=== PATIENT | male | born 1950 | race Caucasian/White ===

== ENCOUNTER → 2017-05-21 15:32 | Outpatient (CLI) | payer OTHER, SELFPAY ==
[2017-05-23 20:08] LABS: HCV Quant. RNA PCR HCV Not Detected IU/mL (.)
[2017-05-24 12:01] LABS: AFP, Tumor Marker 6.4 ng/mL (0.0-8.3)
== END ==
PROVIDERS: Family Provider Internal Medicine; PCP Internal Medicine; Visit Provider Internal Medicine Gastroenterology
DX: B18.2 Chronic viral hepatitis C (principal); K74.60 Unspecified cirrhosis of liver
CPT/HCPCS: 36415; 82105; 87522

== ENCOUNTER 2021-06-30 11:25 | Emergency (ER) | payer MEDICARE, SELFPAY ==
[2021-06-30 11:27] VITALS: BP 152/96; PULSE 110; RESP 24; TEMP 37.7; O2SAT 97; BMI 33.7
--- NOTE | 2021-06-30 11:46 | EDS_ITS ---
HPI History of Present Illness Chief Complaint: Fever Informant: patient Narrative Narrative: 70-year-old male states that 4 days ago he began to have diarrhea. He notes an associated fever that is only present when he eats but if he does not eat fever goes away and he does not have diarrhea. States he also developed a slight cough with some phlegm but denies sore throat or rhinorrhea. No vomiting. He denies any bad food exposure. He denies any blood in the stool. No urinary symptoms. PFSH PFSH Medical History no medical history Home Medications Proair Hfa 10/01/16 [History Last Taken Unknown] budesonide-formoterol [Symbicort 160-4.5 Mcg Inhaler] 6 g IH 10/01/16 [History Last Taken Unknown] montelukast 10 mg PO DAILY 10/01/16 [History Last Taken 10/01/16] amlodipine 5 mg PO DAILY 06/30/21 [History Last Taken Unknown] Allergy/AdvReac Type Severity Reaction Status Date / Time No Known Allergies Allergy Verified 10/02/16 09:17 Surgical History no surgical history Social History (Updated 06/30/21 @ 11:[address] Juan Santos, DO) current gender identity: male Smoking Status: Smoker, status unknown ROS ROS ED Constitutional Constitutional ED: Reports fever(s); Denies chills or weight loss Eyes Eyes: Denies change in vision or diplopia ENT ENT ED: Denies ear pain, rhinorrhea or sore throat Cardiovascular Cardiovascular: Denies chest pain, orthopnea, palpitations or racing heartbeat Respiratory/Chest Respiratory/Chest: Denies cough, dyspnea or orthopnea Gastrointestinal Gastrointestinal: Reports diarrhea; Denies abdominal pain, nausea or vomiting Genitourinary Genitourinary ED: Denies dysuria, hematuria or urinary frequency Musculoskeletal Musculoskeletal: Reports myalgias; Denies arthralgias Integumentary Denies abscess or rash Neurologic Neurologic: Denies headache(s) or weakness Psychiatric Psychiatric: Denies anxiety, depression, suicidal ideation or suicidal thoughts Endocrine Endocrinology: Denies polydipsia, polyphagia or polyuria Allergic/Immunologic Allergic/Immunologic ED: Denies mouth swelling, tongue swelling or urticaria EXAM Physical Exam Const Vital Signs: 06/30/21 11:27 06/30/21 11:46 Temperature 99.9 F H Temperature Source Oral Pulse Rate 110 H Respiratory Rate 24 H Respiratory Effort Normal Respiratory Pattern Normal Blood Pressure 152/96 H Blood Pressure Mean 114 Pulse Ox 97 Oxygen Delivery Method Room Air Positive well nourished and well developed General Appearance ED: well developed HEENT Reports normocephalic, head/scalp atraumatic, TM's clear and moist mucous membranes Negative for trauma Tympanic Membrane ED: Yes TM's clear Eyes PERRL and EOMs intact bilaterally Neck no lymphadenopathy, supple and no JVD Resp normal respiratory effort and clear to auscultation bilaterally Cardio regular rate and no murmurs Rate: tachycardic GI normal to inspection, nondistended, normoactive bowel sounds and non-tender Palpation: soft Back/Spine no CVA tenderness and normal ROM Extremity normal to inspection General Extremety ED: Negative for edema General Extremity: Negative for edema Neuro oriented x3 and CN's II-XII intact bilaterally Sensorium / Orientation: alert Motor Exam: strength 5/5 throughout Psych mental status grossly normal Mood & Affect: Negative for depressed or tearful Skin no rashes or lesions noted and no wounds MDM MDM MDM Narrative Medical decision making narrative: IV was established and the patient received a liter of fluids. His COVID test is negative. White count at 10.1 CMP is within normal limits. Patient overall feels better after liter of fluids. I would recommend Imodium Tylenol and Motrin oral hydration to be continued at home return if worsening or concerns Lab Data Attestation: I reviewed the patient's lab results. Labs: Laboratory Results - last 24 hr 06/30/21 06/30/21 12:05 12:05 WBC 10.1 RBC 4.70 Hgb 15.7 Hct 44.2 MCV 94.0 MCH 33.4 H MCHC 35.5 RDW Std Deviation 42.1 RDW Coeff of Contreras 12.0 Plt Count 245 MPV 9.2 Immature Gran % (Auto) 0.300 Neut % (Auto) 67.7 Lymph % (Auto) 17.2 L [place] % (Auto) 13.7 H Eos % (Auto) 0.8 Baso % (Auto) 0.3 Absolute Neuts (auto) 6.8 Absolute Lymphs (auto) 1.73 Nucleated RBC % 0 Sodium 135 L Potassium 4.2 Chloride 102 Carbon Dioxide 24.0 Anion Gap 9 BUN 11 Creatinine 0.93 Estim Creat Clear Calc 71.08 Est GFR (MDRD) Af Amer 104 Est GFR (MDRD) Non-Af 86 BUN/Creatinine Ratio 11.8 Glucose 107 H Calcium 9.1 Total Bilirubin 1.10 H AST 20 ALT 27 Alkaline Phosphatase 89 Total Protein 8.7 H Albumin 3.8 Globulin 4.9 H Albumin/Globulin Ratio 0.8 L Discharge Plan Triage Chief Complaint: Fever ED Provider: Juan Santos Dx/Rx/DC Orders Clinical Impression: Viral diarrhea Instructions: ED Diarrhea, Viral (Adult) Prescriptions: No Action montelukast 10 MG tablet 10 mg PO DAILY RF: 0 budesonide-formoterol [Symbicort] 6 GM Hfa.Aer.Ad 6 g IH RF: 0 Proair Hfa RF: 0 amlodipine 5 mg tablet 5 mg PO DAILY RF: 0 Primary Care Provider: David Mina Referrals: David Mina MD [Primary Care Provider] - Activity Restrictions/Additional Instructions: I would recommend Imodium for the diarrhea and Tylenol and/or Motrin for fever control. Please monitor your oral intake and urinary output. If you are concerned about dehydration please let us know Disposition Disposition: Home, Self Care
[2021-06-30] MEDS: 0.9% Normal Saline 1,000 ML 999 ML IV (12:03)
[2021-06-30 12:11] LABS: Absolute Lymphocyte Count 1.73 X10^3/uL (0.83-4.51); Absolute Neutrophil Count 6.8 X10^3/uL (2.0-7.7); Basophil# 0.03 X10^3/uL; Basophil% 0.3 % (0-1); Eosinophil# 0.08 X10^3/uL; Eosinophils% 0.8 % (0-5); Hematocrit 44.2 % (40-54); Hemoglobin 15.7 g/dL (13.0-16.5); Lymphocyte # 1.73 X10^3/ul (0.83-4.51); Lymphocyte % 17.2 % (19-41); Mean Corp Hgb Conc 35.5 g/dL (32-36); Mean Corpuscular Hgb 33.4 pg (27.0-32.0); Mean Platelet Vol. 9.2 fl (6.2-12.0); Monocyte# 1.38 X10^3/uL; Monocyte% 13.7 % (0-10); NRBC Flagged by Analyzer 0 % (0-5); Neutrophil % 67.7 % (47-70); Platelet Count 245 K/mm3 (150-450); RBC Distribution Width SD 42.1 fl (35.1-43.9); White Blood Count 10.1 K/mm3 (4.4-11.0)
[2021-06-30 12:27] LABS: ALB/GLOB Ratio 0.8 RATIO (0.9-2.4); AST(SGOT) 20 U/L (15-37); Alanine Aminotransfer ALT/SGPT 27 U/L (16-61); Albumin, Serum 3.8 g/dL (3.2-5.0); Alkaline Phosphatase 89 U/L (45-117); Anion Gap 9 (5-15); BUN 11 mg/dL (7-18); BUN/Creat Ratio 11.8 RATIO (10-20); Calcium,Total 9.1 mg/dL (8.5-10.1); Chloride 102 mmol/L (98-107); Creatinine, Serum 0.93 mg/dL (0.70-1.30); EST Glomerular Filtration Rate 86 mL/min (>60); Est Glom Filt Rate - Afr Amer 104 mL/min (>60); Estimated Creatinine Clearance 71.08 ml/min; Globulin 4.9 g/dL (2.2-4.2); Glucose 107 mg/dL (74-106); Potassium 4.2 mmol/L (3.5-5.1); Protein, Total 8.7 g/dL (6.4-8.2); Sodium Level 135 mmol/L (136-145)
== END 2021-06-30 13:44 | disposition home or self-care (01) ==
PROVIDERS: Emergency Provider Emergency Medicine; PCP Internal Medicine; Visit Provider Emergency Medicine
DX: A08.4 Viral intestinal infection, unspecified (principal)
CPT/HCPCS: 80053; 85025; 87811; 96360; 96361; 99283; J7030; A4216

== ENCOUNTER → 2022-05-20 | Outpatient (CLI) | payer MEDICARE, SELFPAY ==
--- NOTE | 2022-05-20 10:55 | ECHOD_ITS ---
Reason For Study: Dyspnea/SOB Procedure This was a 2D Doppler, Color Flow transthoracic echocardiogram. Exam performed in department. Left Ventricle Normal LV size. Moderate concentric left ventricular hypertrophy. Left ventricular systolic function is normal. The estimated ejection fraction is 60 %. Stage 1 diastolic dysfunction. No regional wall motion abnormalities noted. Right Ventricle Normal RV size. Normal systolic function. Atria Normal left atrium. Normal right atrium. Mitral Valve Normal mitral valve. Tricuspid Valve Normal tricuspid valve. Aortic Valve Normal aortic valve. Pulmonic Valve The pulmonic valve is not well visualized. Great Vessels Normal aortic root. The pulmonary artery is normal size. Normal inferior vena cava. Pericardium/Pleural No pericardial effusion. MMode/2D Measurements & Calculations LVIDd: 4.2 cm IVSd: 1.6 cm Ao root diam: 3.4 cm LVIDs: 2.4 cm LVPWd: 1.4 cm RVDd: 2.6 cm FS: 44.3 % LAV(MOD-bp): 24.8 ml LVAd ap4: 20.8 cm2 SV(MOD-sp4): 30.2 ml LAV(MOD-bp) Indexed: 11.9 ml/m2 LVLd ap4: 7.2 cm LAV(MOD-sp2): 26.3 ml EDV(MOD-sp4): 48.0 ml LAV(MOD-sp4): 22.5 ml EDV(sp4-el): 50.8 ml LVAs ap4: 11.2 cm2 LVLs ap4: 5.9 cm ESV(MOD-sp4): 17.8 ml ESV(sp4-el): 17.9 ml EF(MOD-sp4): 62.9 % EF(sp4-el): 64.8 % SV(sp4-el): 32.9 ml LA A4 area: 11.6 cm2 LA dimension(2D): 4.0 cm RA A4 area: 7.8 cm2 Time Measurements MV dec time: 0.30 sec Doppler Measurements & Calculations MV E max lake: 51.8 cm/sec Lat Peak E' [place]: 8.8 cm/sec Med Peak E' [place]: 7.0 cm/sec MV A max lake: 84.1 cm/sec E/E' lat: 5.9 E/E' med: 7.4 MV E/A: 0.62 Ao V2 max: 110.5 cm/sec LV V1 max: 106.6 cm/sec MV dec slope: 174.1 cm/sec2 Ao max P.9 mmHg LV V1 max P.5 mmHg Ao V2 mean: 78.7 cm/sec Ao mean P.8 mmHg Ao V2 VTI: 20.1 cm PA V2 max: 94.5 cm/sec ECHO/Echo Complete Interpretation Summary Normal LV size. Left ventricular systolic function is normal. The estimated ejection fraction is 60 %. Stage 1 diastolic dysfunction. Moderate concentric left ventricular hypertrophy. Ordering Physician: Edilberto Garland Referring Physician: David Mina Performed By: Deb Key, RDCS, RVT
== END | disposition home or self-care (01) ==
LOC: CVS 10:53
PROVIDERS: PCP Internal Medicine; Referring Provider Internal Medicine Critical Care Medicine; Visit Provider Internal Medicine Critical Care Medicine
DX: R06.00 Dyspnea, unspecified (principal)
CPT/HCPCS: 93306

== ENCOUNTER → 2022-07-29 | Outpatient (CLI) | payer MEDICARE, SELFPAY ==
--- NOTE | 2022-07-29 13:07 | CT_ITS ---
STUDY: LOW DOSE CT LUNG CANCER SCREENING REASON FOR EXAM: Male, 71 years old. Patient smoked one half pack per day for 20 years. RADIATION DOSAGE (If Supplied By Facility): CTDIvol = ( 3.18 ) mGy, DLP = ( 116.76 ) mGycm TECHNIQUE: No contrast was administered. Low dose technique was utilized (average mAS-38 and kVp 120). 1.25 mm axial source images with a slice interval of 1.25-mm were reconstructed in lung windows. 2.5 mm axial source images with a slice interval of 2.5-mm were reconstructed in lung windows. 5.0 mm axial source images with a slice interval of 5.0-mm were reconstructed in soft tissue windows. COMPARISON: None. NODULES: No suspicious nodules are seen. Emphysema: Hyperinflation. Emphysematous changes more prominent in the upper lobes. Endobronchial lesion: None Aorta: Mild atherosclerotic plaque formation of the aortic arch. CORONARY ARTERIES: Coronary artery calcification is seen. Heart: Unremarkable. Pulmonary artery: Unremarkable. Mediastinal nodes: Small benign-appearing mediastinal lymph nodes. Other chest and abdominal findings: CT/Low Dose CT Lung Screening IMPRESSION: Lung-RADS category 2 - Continue annual screening with LDCT in 12 months. IMPORTANT NOTES FOR USE: ACR Lung-RADS Version 1.1 Assessment Categories Release Date: 2018 Category: Coded 0-4 bases on nodule(s) with highest degree of suspicion. Negative screen is defined as categories 1 and 2; a positive screen is defined as categories 3 and 4. Category 3 and 4A nodules that are unchanged on interval CT should be coded as category 2, and individuals returned to screening in 12 months. Category 4X: Category 3 or 4 nodules with additional imaging findings that increase the suspicion of lung cancer, such as spiculation, GGN that doubles in size in 1 year, enlarged lymph notes, etc. Category Modifiers: S (significant finding unrelated to lung cancer) Electronically Signed: Jona Bernabe MD at 15:32 EDT ,
== END | disposition home or self-care (01) ==
LOC: CT 13:03
PROVIDERS: PCP Internal Medicine; Referring Provider Internal Medicine Critical Care Medicine; Visit Provider Internal Medicine Critical Care Medicine
DX: Z12.2 Encounter for screening for malignant neoplasm of respiratory organs (principal); J44.9 Chronic obstructive pulmonary disease, unspecified; F17.210 Nicotine dependence, cigarettes, uncomplicated
CPT/HCPCS: 71271

== ENCOUNTER → 2022-08-15 | Outpatient (CLI) | payer MEDICARE, SELFPAY ==
--- NOTE | 2022-08-16 10:28 | PFT ---
INTRODUCTION: The patient is a 71-year-old male that presents for pulmonary function studies secondary to a diagnosis of COPD. Respiratory therapy reported good patient effort. Bronchodilators were used during testing. INTERPRETATION: Forced expiration spirometry demonstrates the presence of a mild large airways obstructive ventilatory defect. There was a significant response to aerosolized bronchodilators. Spirograms are of good quality but do not plateau indicating slow emptying of the lungs. Body plethysmography was performed and revealed lung volumes to be within normal limits. Diffusing capacity by single breath CO is also within normal limits. IMPRESSION: Partially reversible mild large airways obstructive ventilatory defect with preserved lung volumes and diffusing capacity.
== END | disposition home or self-care (01) ==
LOC: PSN 10:48
PROVIDERS: PCP Internal Medicine; Referring Provider Internal Medicine Critical Care Medicine; Visit Provider Internal Medicine Critical Care Medicine
DX: J44.9 Chronic obstructive pulmonary disease, unspecified (principal)
CPT/HCPCS: 94060; 94726; 94729

== ENCOUNTER → 2022-08-19 | Outpatient (CLI) | payer MEDICARE, SELFPAY ==
[2022-08-19 13:33] VITALS: PULSE 100; PULSE 107; PULSE 108; PULSE 109; PULSE 111; O2SAT 94; O2SAT 96; O2SAT 97
--- NOTE | 2022-08-20 16:19 | PFT ---
6-minute walk test Indication: COPD Referring physician: Dr. Edilberto Garland Conditions: Room air The patient completed the test and walked for 6 minutes. Baseline SPO2 was 96%. Minimum ambulatory SPO2 was 94% at 1 minute. Minimum heart rate was 100 at baseline and postexercise. Maximum heart rate was 109 bpm at 4 minutes exercise. Posttest SPO2 was 97% and heart rate was 100 bpm. The Charity dyspnea scale (0-10) was 0% preexercise and 1 at maximum exercise. The Charity exertion scale (range 6-12) was 6 at preexercise and 11 at maximum exercise. The patient took no rest and reported no symptoms during the test. He walked 20 laps, for a total of 1082 feet.
== END | disposition home or self-care (01) ==
LOC: PSN 12:33
PROVIDERS: PCP Internal Medicine; Referring Provider Internal Medicine Critical Care Medicine; Visit Provider Internal Medicine Critical Care Medicine
DX: J44.9 Chronic obstructive pulmonary disease, unspecified (principal)
CPT/HCPCS: 94618

== ENCOUNTER → 2023-01-28 | Outpatient (CLI) | payer MEDICARE, SELFPAY ==
[2023-01-28 10:06] LABS: Hematocrit 43.9 % (40-54); Hemoglobin 15.3 g/dL (13.0-16.5); Mean Corp Hgb Conc 34.9 g/dL (32-36); Mean Corpuscular Hgb 33.4 pg (27.0-32.0); Mean Corpuscular Volume 95.9 fL (80-94); Mean Platelet Vol. 9.1 fl (6.2-12.0); Platelet Count 256 K/mm3 (150-450); RBC Distribution Width CV 12.8 % (11.6-14.6); RBC Distribution Width SD 45.5 fl (35.1-43.9); Red Blood Count 4.58 M/mm3 (4.6-6.2)
[2023-01-28 10:44] LABS: ALB/GLOB Ratio 0.9 RATIO (0.9-2.4); AST(SGOT) 24 U/L (15-37); Alanine Aminotransfer ALT/SGPT 35 U/L (16-61); Albumin, Serum 3.6 g/dL (3.2-5.0); Alkaline Phosphatase 69 U/L (45-117); Anion Gap 7 (5-15); BUN 11 mg/dL (7-18); BUN/Creat Ratio 12.5 RATIO (10-20); Calcium,Total 8.6 mg/dL (8.5-10.1); Chloride 99 mmol/L (98-107); Cholesterol 170 mg/dL (200); Creatinine, Serum 0.88 mg/dL (0.70-1.30); EST Glomerular Filtration Rate 91 mL/min (>60); Est Glom Filt Rate - Afr Amer 110 mL/min (>60); Glucose 104 mg/dL (74-106); High Density Lipoprotein 67 mg/dL; PSA,Total- Diagnostic 0.29 ng/mL (0.0-4.0); Potassium 3.6 mmol/L (3.5-5.1); Protein, Total 7.6 g/dL (6.4-8.2); Sodium Level 134 mmol/L (136-145); Triglycerides 81 mg/dL; Very Low Density Lipoprotein 16 mg/dL (5-40)
== END | disposition home or self-care (01) ==
LOC: MFPLAB 09:17
PROVIDERS: PCP Internal Medicine; Visit Provider Family Medicine
DX: I10 Essential (primary) hypertension (principal); J44.9 Chronic obstructive pulmonary disease, unspecified; N40.0 Benign prostatic hyperplasia without lower urinary tract symptoms
CPT/HCPCS: 36415; 80053; 80061; 84153; 85027

== ENCOUNTER → 2023-07-31 | Outpatient (CLI) | payer MEDICARE, SELFPAY ==
--- NOTE | 2023-07-31 14:02 | CT_ITS ---
STUDY: LOW DOSE CT LUNG CANCER SCREENING REASON FOR EXAM: Male, 72 years old. Smoker, quit 2017. Patient smoked 1 pack per day for 20 years. RADIATION DOSAGE (If Supplied By Facility): CTDIvol = ( 4.02 ) mGy, DLP = ( 139.94 ) mGycm TECHNIQUE: No contrast was administered. Low dose technique was utilized (average mAS-38 and kVp 120). 1.25 mm axial source images with a slice interval of 1.25-mm were reconstructed in lung windows. 2.5 mm axial source images with a slice interval of 2.5-mm were reconstructed in lung windows. 5.0 mm axial source images with a slice interval of 5.0-mm were reconstructed in soft tissue windows. COMPARISON: Comparison is made with prior examination dated July 29, 2022. NODULES: No pulmonary nodule is seen. Emphysema: Emphysematous changes. Centrilobular changes seen in the upper lobes. Endobronchial lesion: None Aorta: Atherosclerotic calcification of the aortic arch. CORONARY ARTERIES: Coronary artery calcification is seen. Heart: Unremarkable Pulmonary artery: Unremarkable Mediastinal nodes: Small mediastinal lymph nodes. Other chest and abdominal findings: CT/Low Dose CT Lung Screening IMPRESSION: Lung-RADS category 2 - Continue annual screening with LDCT in 12 months. IMPORTANT NOTES FOR USE: ACR Lung-RADS Version 1.1 Assessment Categories Release Date: 2018 Category: Coded 0-4 bases on nodule(s) with highest degree of suspicion. Negative screen is defined as categories 1 and 2; a positive screen is defined as categories 3 and 4. Category 3 and 4A nodules that are unchanged on interval CT should be coded as category 2, and individuals returned to screening in 12 months. Category 4X: Category 3 or 4 nodules with additional imaging findings that increase the suspicion of lung cancer, such as spiculation, GGN that doubles in size in 1 year, enlarged lymph notes, etc. Category Modifiers: S (significant finding unrelated to lung cancer) Electronically Signed: Jona Bernabe MD at 14:41 EDT ,
== END | disposition home or self-care (01) ==
PROVIDERS: PCP Family Medicine; Referring Provider Nurse Practitioner Acute Care; Visit Provider Nurse Practitioner Acute Care
DX: Z12.2 Encounter for screening for malignant neoplasm of respiratory organs (principal); Z87.891 Personal history of nicotine dependence
CPT/HCPCS: 71271

== ENCOUNTER → 2023-09-29 | Outpatient (CLI) | payer MEDICARE, SELFPAY ==
--- NOTE | 2023-09-29 15:11 | RAD_ITS ---
STUDY: X-RAY - LEFT KNEE REASON FOR EXAM: Male, 72 years old. pain TECHNIQUE: 4 view(s) of the knee. COMPARISON: None. FINDINGS: Normal visualized distal femur. Normal visualized proximal tibia and fibula. Normal proximal tibiofibular articulation. There is mild degenerative arthrosis of the medial femorotibial compartment. There is mild degenerative arthrosis of the lateral femorotibial compartment. There is mild degenerative arthrosis of the patellofemoral articulation. The soft tissue structures are unremarkable. RAD/Knee 4 or More Views IMPRESSION: Degenerative arthrosis. Electronically Signed: Dawson Corona MD at 18:32 EDT ,
== END | disposition home or self-care (01) ==
PROVIDERS: PCP Family Medicine; Referring Provider Nurse Practitioner Family; Visit Provider Nurse Practitioner Family
DX: M25.562 Pain in left knee (principal)
CPT/HCPCS: 73564

== ENCOUNTER 2024-01-06 14:00 | Outpatient (RCR) | payer MEDICARE, SELFPAY | END 2024-01-06 19:00 | disposition home or self-care (01) | LOC: PT 14:00 | PROVIDERS: PCP Family Medicine; Referring Provider Family Medicine; Visit Provider Family Medicine | DX: M17.10 Unilateral primary osteoarthritis, unspecified knee (principal) | CPT/HCPCS: 97110; 97162; 97530 ==

== ENCOUNTER → 2024-02-22 | Outpatient (CLI) | payer MEDICARE, SELFPAY ==
--- NOTE | 2024-02-22 12:20 | MRI_ITS ---
STUDY: MRI LEFT KNEE REASON FOR EXAM: Male, 73 years old. Pain. TECHNIQUE: Standardized fat and water weighted pulse sequences were obtained in all 3 orthogonal planes. COMPARISON: Left knee radiographs dated 09/29/2023. FINDINGS: Normal medial meniscus. Normal hyaline cartilage of the medial femorotibial compartment. Normal medial femoral condyle and tibial plateau. Normal medial collateral ligamentous complex (MCL). Normal distal semimembranosus, gracilis and semitendinosus tendons. Normal lateral meniscus. Normal hyaline cartilage of the lateral femorotibial compartment. Normal lateral femoral condyle and tibial plateau. Normal proximal tibiofibular articulation. Normal lateral collateral (fibular) ligament. Normal popliteus tendon. Normal biceps femoris tendon. Normal anterior cruciate ligament (ACL). Normal posterior cruciate ligament (PCL). There is moderate grade chondromalacia along the lateral patellar facet (axial T2 series 2 image 8). There is slight lateral patellar subluxation. Normal medial and lateral patellar retinaculum. Normal quadriceps tendon. Normal patellar tendon. Normal Hoffa''s fat pad. There is a very tiny joint effusion. There is no popliteal cyst. The soft tissues are unremarkable. The otherwise visualized osseous structures are unremarkable. MRI/Lower Ext Joint Only (Routine) IMPRESSION: Moderate grade chondromalacia patellae, with slight lateral patellar subluxation. Very tiny joint effusion. No discrete meniscal tear or acute ligamentous injury. Electronically Signed: Pedro Pablo Earl MD at 15:44 EST ,
== END | disposition home or self-care (01) ==
PROVIDERS: PCP Family Medicine; Referring Provider Family Medicine; Visit Provider Family Medicine
DX: M25.562 Pain in left knee (principal)
CPT/HCPCS: 73721

== ENCOUNTER → 2024-07-15 | Outpatient (CLI) | payer MEDICARE, SELFPAY ==
[2024-07-15 12:19] LABS: Hematocrit 40.6 % (40-54); Hemoglobin 14.7 g/dL (13.0-16.5); Mean Corp Hgb Conc 36.2 g/dL (32-36); Mean Corpuscular Hgb 33.4 pg (27.0-32.0); Mean Corpuscular Volume 92.3 fL (80-94); Mean Platelet Vol. 9.2 fl (6.2-12.0); Platelet Count 219 K/mm3 (150-450); RBC Distribution Width CV 12.5 % (11.6-14.6); RBC Distribution Width SD 42.5 fl (35.1-43.9); White Blood Count 6.6 K/mm3 (4.4-11.0)
[2024-07-15 13:31] LABS: ALB/GLOB Ratio 1.5 RATIO (0.9-2.4); AST(SGOT) 31 U/L (<=37); Alanine Aminotransfer ALT/SGPT 33 U/L (<=46); Albumin, Serum 4.3 g/dL (3.4-4.8); Alkaline Phosphatase 68 U/L (40-129); Anion Gap 11 (5-15); BUN 18 mg/dL (4-19); BUN/Creat Ratio 23.1 RATIO (10-20); Calcium,Total 8.9 mg/dL (7.6-11.0); Carbon Dioxide 26.6 mmol/L (21.0-32.0); Chloride 94 mmol/L (98-108); Cholesterol 136 mg/dL (<=200); Creatinine, Serum 0.79 mg/dL (0.70-1.20); EST Glomerular Filtration Rate 95 (>60); Globulin 2.9 g/dL (2.2-4.2); Glucose 105 mg/dL (70-99); High Density Lipoprotein 60 mg/dL; Low Density Lipoprotein Calc. 64 mg/dL; PSA,Total - Annual Screen 0.33 ng/mL (0.02-4.00); Potassium 3.4 mmol/L (3.3-5.1); Protein, Total 7.3 g/dL (5.9-8.4); Sodium Level 132 mmol/L (133-145); Triglycerides 63 mg/dL; Very Low Density Lipoprotein 13 mg/dL (5-40); cholesterol:hdl ratio screen 2.28
[2024-07-15 16:09] LABS: Microalbumin,Random Urine < 12.0 mg/L (NO RANGE EST.)
== END | disposition home or self-care (01) ==
LOC: MFPLAB 10:24
PROVIDERS: PCP Family Medicine; Referring Provider Family Medicine; Visit Provider Family Medicine
DX: Z00.00 Encounter for general adult medical examination without abnormal findings (principal); J44.9 Chronic obstructive pulmonary disease, unspecified; Z12.5 Encounter for screening for malignant neoplasm of prostate; E78.5 Hyperlipidemia, unspecified
CPT/HCPCS: 36415; 80053; 80061; 82043; 84153; 85027; G0103

== ENCOUNTER → 2024-08-02 | Outpatient (CLI) | payer MEDICARE, SELFPAY ==
--- NOTE | 2024-08-02 08:22 | CT_ITS ---
PROCEDURE: LOW DOSE CT LUNG SCREENING 08/02/2024 REASON FOR EXAM: SMOKER TECHNIQUE: Low Dose CT Lung screening without contrast. Coronal and Sagittal reconstruction series were provided. One or more dose reduction techniques were used (e.g., Automated exposure control, adjustment of the mA and/or kV according to patient size, use of iterative reconstruction technique). REFERENCE LINK: [employer] Lung-RADS RADIATION DOSE SUMMARY: CTDlvol: 4.02 mGy DLP: 149.99 mGycm COMPARISON: Comparison is made with prior study dated July 31, 2023. FINDINGS: PULMONARY NODULES: (Only nodules >3mm are reported) Nodules described below are on series 1 unless otherwise specified. Pulmonary Nodules: No suspicious pulmonary nodule seen. Hardware:None Lymph Nodes:Small benign-appearing mediastinal lymph nodes. These are stable. Heart and Vasculature:The heart is not enlarged. Coronary Artery Calcifications: Present Lungs and Airways: Mild emphysematous changes are present. Hyperinflation. Stable examination. Pleura:Unremarkable Upper Abdomen:Unremarkable Bones:Degenerative changes of the thoracic spine. CT/Low Dose CT Lung Screening IMPRESSION: Stable examination. Coronary artery calcification (CAC) is is present Lung-RADS Category: 2 BENIGN (BASED ON IMAGING FEATURES OR INDOLENT BEHAVIOR). RECOMMEND 12-MONTH SCREENING LDCT. Other Significant Findings: None. Reading Location: [place] [id number]
== END | disposition home or self-care (01) ==
LOC: CT 08:21
PROVIDERS: PCP Family Medicine; Referring Provider Nurse Practitioner Acute Care; Visit Provider Nurse Practitioner Acute Care
DX: F17.210 Nicotine dependence, cigarettes, uncomplicated (principal)
CPT/HCPCS: 71271

== ENCOUNTER 2024-10-12 05:57 | Day surgery (SDC) | payer MEDICARE, SELFPAY ==
--- NOTE | 2024-10-01 19:31 | PAT.ANE_ITS ---
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
--- NOTE | 2024-10-01 19:31 | PAT.ANESEVAL ---
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 When Was Last Pacemaker Check QUESTION #4 FULL TEXT: You/Your Family Experience fever (hyperthermia) with Anesthesia Last Oral Intake Last Oral intake: Last Oral Intake NPO since Meds taken in AM with sips of water? Meds patient instructed to take am of surgery PONV PONV - stone mason: PONV - stone mason Female No 10/01/24 14:07 HX of Motion Sickness No 10/01/24 14:07 HX of N/V After Surgery No 10/01/24 14:07 Non-Smoker Yes 10/01/24 14:07 Duration of Surgery greater No 10/01/24 14:07 than 60 minutes Number of Risk Factors 1 10/01/24 14:07 PONV Score Low Risk 10/01/24 14:07 Height & Weight Height & Weight: Anesthesia: Height & Weight Height 5 ft 7 in 09/08/24 07:54 Respiratory Assessment Respiratory Assessment - stone mason: Respiratory Tract Infection Hx - stone mason Hx Respiratory Tract Infection No 10/01/24 14:07 STOP Sleep Apnea STOP Sleep Apnea - stone mason: STOP Sleep Apnea - stone mason Hx Hypertension Yes 10/01/24 14:07 Hx Sleep Apnea No 10/01/24 14:07 CPAP BIPAP Do you snore loudly (louder No 10/01/24 14:07 than talking or can be heard Do you often feel tired/ No 10/01/24 14:07 fatigued/ sleepy during daytime? Has anyone observed you stop No 10/01/24 14:07 breathing during sleep? STOP Results Negative 10/01/24 14:07 QUESTION #5 FULL TEXT : Do you snore loudly (louder than talking or can be heard through closed doors)? 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 Specify any problems Hx of Preganancy in last 3 N/A 10/01/24 14:07 Months Nurse Filling Out Transfusion KALLIE 10/01/24 14:07 & Questions: Date: 10/01/24 10/01/24 14:07 Time: 14:09 10/01/24 14:07 Patient unable to answer at this time (ie. 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 Thrombocytopenia History of chicken pox 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 Chronic hepatitis C without hepatic coma Carpal tunnel syndrome, bilateral Asthma with chronic obstructive pulmonary disease (COPD) Asbestos exposure Allergy to environmental factors Abnormal liver function tests Home Medications ?Medication ?Instructions ?Recorded ?Last Taken ?Type losartan 50 mg tablet 50 mg PO BID 05/14/22 Unknown History tadalafil 20 mg tablet 20 mg PO DAILY PRN sexual activity 05/14/22 Unknown History chlorthalidone 25 mg tablet 25 mg PO DAILY 03/14/23 Unknown History Disability Placard #1 ea 05/06/24 Unknown Rx aspirin 81 mg tablet 81 mg PO QDAY 09/08/24 Unknown History meloxicam 15 mg tablet 15 mg PO QDAY 09/08/24 Unknown History rosuvastatin 20 mg tablet 20 mg PO QHS 09/08/24 Unknown History tamsulosin 0.4 mg capsule 0.4 mg PO QHS 09/08/24 Unknown History albuterol sulfate 90 mcg/actuation 2 inh inhalation Q6H #8.5 grams 09/20/24 Unknown Rx aerosol inhaler budesonide-formoterol HFA 160 2 puff inhalation BID #3 ea 09/20/24 Unknown Rx mcg-4.5 mcg/actuation aerosol inhaler (Symbicort) montelukast 10 mg tablet 10 mg PO DAILY #90 tabs 09/20/24 Unknown Rx Allergy/AdvReac Type Severity Reaction Status Date / Time No Known Allergies Allergy Verified 10/01/24 13:57 Family History Father , age 66 CAD (coronary artery disease) Hypertension Obesity CVA (cerebral vascular accident) Surgical History (Updated 10/01/24 @ 14:06 by Nan Vivas) History of hernia surgery Social History number of children: 1 Smoking Status: Former smoker quit date: 01/15/18 pack-years: 40 Audit: Pertinent Findings Pertinent Findings EKG Perinent findings: October 16, 2023. Sinus rhythm. Normal EKG. Stress test pertinent findings: November 03, 2023. Negative for inducible ischemia. Normal ejection fraction. Echo (EF%) pertinent findings: May 20, 2022. EF is 60%. No aortic stenosis noted. Consult pertinent findings: November 27, 2023. 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 1. Hypertension?controlled. 2. Aortic atherosclerosis-recent ultrasound of the aorta was normal. 3. Coronary artery calcification-most recent stress test showed no ischemia and a normal ejection fraction. Patient is started on a statin and baby aspirin. Recommendation Anesthesia Recommendation Anesthesia recommendation: OPTIMIZED for anesthesia
[2024-10-12] VITALS (9 sets, daily range): BP systolic 128–151; BP diastolic 58–95; PULSE 69–79; RESP 14–20; TEMP 36.6–36.9; O2SAT 10–100; BMI 32.8
[2024-10-12] MEDS: Lactated Ringers 1,000 ML 15 ML IV (06:38)
--- NOTE | 2024-10-12 07:20 | PCM.PRE.AN2 ---
ASA Classification* ASA Classification ASA Classification: 3 Assessment & Plan Anesthesia* Anesthesia Assessment Anesthesia Assessment: Discussed sedation and/or anesthesia options, risks, benefits, and alternatives with patient/parents/legal guardian/POA. Questions invited. The patient/parents/legal guardian/POA seems to understand and agrees to proceed with anesthesia plan. Reviewed the physical assessment, medical history, allergy history and patient home medications list prior to surgery/procedure/anesthetic and documented any changes. Performed airway and anesthesia risk assessments. Anesthesia Type Anesthesia Type: MAC History Source History Obtained from:: Patient and Chart Anesthesia Focused Assessment* Temperature: 98.3 F Pulse Rate: 79 Blood Pressure: 132/85 Respiratory Rate: 18 Pulse Ox: 97 Oxygen Delivery Method: Room Air Airway Assessment Mouth opens: >3 cm Mallampati Score: III Teeth Condition: Intact and Partial (partial on bottom; out) Labs Anesthesia Preop lab: CBC WBC 6.6 K/mm3 (4.4-11.0) 07/15/24 10:07/15/24 RBC 4.40 M/mm3 (4.6-6.2) L 07/15/24 10:07/15/24 Hgb 14.7 g/dL (13.0-16.5) 07/15/24 10:07/15/24 Hct 40.6 % (40-54) 07/15/24 10:25 07/15/24 Plt Count 219 K/mm3 (150-450) 07/15/24 10:25 07/15/24 CHEMISTRY Potassium 3.4 mmol/L (3.3-5.1) 07/15/24 10:25 07/15/24 Sodium 132 mmol/L (133-145) L 07/15/24 10:25 07/15/24 BUN 18 mg/dL (4-19) 07/15/24 10:07/15/24 Creatinine 0.79 mg/dL (0.70-1.20) 07/15/24 10:07/15/24 Glucose 105 mg/dL (70-99) H 07/15/24 10:25 07/15/24 COAG PT 13.7 SECONDS (11.7-14.9) 09/18/16 14:17 07/05/17 Pre-Assessment Diagnosis/Proposed Procedure Planned Operative Procedure(s): (L) Left thumb Trigger Finger A1 mk release Anesthesia History 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 When Was Last Pacemaker Check QUESTION #4 FULL TEXT: You/Your Family Experience fever (hyperthermia) with Anesthesia Last Oral Intake Last Oral intake: Last Oral Intake NPO since 00:00 10/12/24 06:25 Meds taken in AM with sips of No 10/12/24 06:25 water? Meds patient instructed to take am of surgery PONV PONV - covering machine operator: PONV - covering machine operator Female No 10/01/24 14:07 HX of Motion Sickness No 10/01/24 14:07 HX of N/V After Surgery No 10/01/24 14:07 Non-Smoker Yes 10/01/24 14:07 Duration of Surgery greater No 10/01/24 14:07 than 60 minutes Number of Risk Factors 1 10/01/24 14:07 PONV Score Low Risk 10/01/24 14:07 Height & Weight Height & Weight: Anesthesia: Height & Weight Height 5 ft 8 in 10/12/24 06:25 Weight: 98 kg 10/12/24 06:25 Body Mass Index (BMI) 32.8 10/12/24 06:25 Respiratory Assessment Respiratory Assessment - covering machine operator: Respiratory Tract Infection Hx - covering machine operator Hx Respiratory Tract Infection No 10/01/24 14:07 STOP Sleep Apnea STOP Sleep Apnea - covering machine operator: STOP Sleep Apnea - covering machine operator Hx Hypertension Yes 10/01/24 14:07 Hx Sleep Apnea No 10/01/24 14:07 CPAP BIPAP Do you snore loudly (louder No 10/01/24 14:07 than talking or can be heard Do you often feel tired/ No 10/01/24 14:07 fatigued/ sleepy during daytime? Has anyone observed you stop No 10/01/24 14:07 breathing during sleep? STOP Results Negative 10/01/24 14:07 QUESTION #5 FULL TEXT : Do you snore loudly (louder than talking or can be heard through closed doors)? 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 Specify any problems Hx of Preganancy in last 3 N/A 10/01/24 14:07 Months Nurse Filling Out Transfusion MGRIFFITH 10/01/24 14:07 & Questions: Date: 10/01/24 10/01/24 14:07 Time: 14:09 10/01/24 14:07 Patient unable to answer at this time (ie. confused, unrespo /Reproduction History /Reproductive History - covering machine operator: /Reproductive Hx- covering machine operator Hx Now Gestational Age (in weeks): EDC: Hx Hx Para Hx Section SAB Active Medications Active Medications: Current Medications Generic Name Dose Route Start Last Admin Trade Name Freq PRN Reason Stop Dose Admin Cefazolin Sodium 2 gm/ Sodium 110 mls @ 200 mls/hr 10/12/24 07:30 Chloride IV 10/12/24 08:02 INTRAOP ONE Lactated Ringer's 1,000 mls @ 15 mls/hr 10/12/24 06:15 10/12/24 06:38 IV 15 mls/hr .Q48H DELISA Administration PFSH Medical History Wears glasses Alcohol use Arthritis High cholesterol History of hepatitis C Injury of head and neck Asthma COPD (chronic obstructive pulmonary disease) Former smoker Hypertension History of echocardiogram Cardiology follow-up encounter History of CHF (congestive heart failure) 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 Thrombocytopenia History of chicken pox 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 Chronic hepatitis C without hepatic coma Carpal tunnel syndrome, bilateral Asthma with chronic obstructive pulmonary disease (COPD) Asbestos exposure Allergy to environmental factors Abnormal liver function tests Home Medications ?Medication ?Instructions ?Recorded ?Last Taken ?Type losartan 50 mg tablet 50 mg PO BID 05/14/22 10/11/24 History tadalafil 20 mg tablet 20 mg PO DAILY PRN sexual activity 05/14/22 Unknown History chlorthalidone 25 mg tablet 25 mg PO DAILY 03/14/23 10/11/24 History Disability Placard #1 ea 05/06/24 Unknown Rx aspirin 81 mg tablet 81 mg PO QDAY 09/08/24 10/10/24 History meloxicam 15 mg tablet 15 mg PO QDAY 09/08/24 10/04/24 History rosuvastatin 20 mg tablet 20 mg PO QHS 09/08/24 10/11/24 History tamsulosin 0.4 mg capsule 0.4 mg PO QHS 09/08/24 10/11/24 History albuterol sulfate 90 mcg/actuation 2 inh inhalation Q6H #8.5 grams 09/20/24 10/11/24 Rx aerosol inhaler budesonide-formoterol HFA 160 2 puff inhalation BID #3 ea 09/20/24 10/11/24 Rx mcg-4.5 mcg/actuation aerosol inhaler (Symbicort) montelukast 10 mg tablet 10 mg PO DAILY #90 tabs 09/20/24 10/11/24 Rx Allergy/AdvReac Type Severity Reaction Status Date / Time Environmental Allergies: Allergy Severe Stuffy nose Verified 10/12/24 06:21 Uncoded (seasonal) Family History Father , age 66 CAD (coronary artery disease) Hypertension Obesity CVA (cerebral vascular accident) Surgical History History of hernia surgery Social History number of children: 1 Smoking Status: Former smoker quit date: 01/15/18 pack-years: 40 Review of Systems (Anesthesia) ROS Narrative System reviewed and no additional complaints, except as documented.
--- NOTE | 2024-10-12 07:30 | HP.PCM_ITS ---
History and Physical Date of Admission: 10/12/24 [facility] [address] [place] [address] OFFICE VISIT Date of Service: 10/04/24 MR#: [id number] Acct: [id number] Name: CHRISTINE CUEVAS Rep #: [id number] : 1950 Provider: Dr. Eleazar Mayo DO Age/Sex: 73/M Location: [facility] [place] Status: Signed Intake Vital Signs 09/08/2506:54 10/05/2507:14 Height 5 ft 7 in 5 ft 7 in Weight: 219 lb 212 lb BMI 34.2 33.2 BP 133/87 H Blood Pressure Location Lt brachial Position Sitting Respiration 20 H Pulse 89 Pulse Source Monitor Temp 97.4 F L Pulse Oximetry (%) 96 Oxygen Delivery Method room air Intake Visit Reasons: LEFT KNEE Chief Complaint: 3rd Euflexxa left knee injection Accompanied by: Self Is patient in pain?: Yes Pain scale (1-10): 1 Allergies Environmental Allergies: Uncoded (seasonal) Allergy (Severe, Verified 10/04/24 08:22) Stuffy nose Medications ?Medication ?Instructions ?Recorded ?Confirmed ?Type losartan 50 mg tablet 50 mg PO BID 05/14/22 10/04/24 History tadalafil 20 mg tablet 20 mg PO DAILY PRN sexual activity 05/1410/04/24 History chlorthalidone 25 mg tablet 25 mg PO DAILY 03/14/23 10/04/24 History Disability Placard #1 ea 05/06/24 10/04/24 Rx aspirin 81 mg tablet 81 mg PO QDAY 09/08/24 10/04/24 History meloxicam 15 mg tablet 15 mg PO QDAY 09/08/24 10/04/24 History rosuvastatin 20 mg tablet 20 mg PO QHS 09/08/24 10/04/24 History tamsulosin 0.4 mg capsule 0.4 mg PO QHS 09/08/24 10/04/24 History albuterol sulfate 90 mcg/actuation 2 inh inhalation Q6H #8.5 grams 09/20/24 10/04/24 Rx aerosol inhaler budesonide-formoterol HFA 160 2 puff inhalation BID #3 ea 09/20/24 Rx mcg-4.5 mcg/actuation aerosol inhaler (Symbicort) montelukast 10 mg tablet 10 mg PO DAILY #90 tabs 09/20/24 5 Rx Have you fallen in the past year?: Yes PFSH Medical History Wears glasses Alcohol use Arthritis High cholesterol History of hepatitis C Injury of head and neck Asthma COPD (chronic obstructive pulmonary disease) Former smoker Hypertension History of echocardiogram Cardiology follow-up encounter History of CHF (congestive heart failure) 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 Thrombocytopenia History of chicken pox 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 Eleazar Mayo, DO 10/04/24 0744. Part of today?s visit was documented by Verónica Sanchez MA, acting as scribe. CHRISTINE CUEVAS is a 73 year old M here today for 3rd Euflexxa left knee injection. 09/27/2024 visit:here today for 2nd left knee Euflexxa injection. He does note that he has been having triggering of his left thumb for a week or two. Previously he saw Dr. Junior about 7 months ago and he did give him an injection which gave him relief for about 7-8 months. He denies and hx of trauma to the thumb. Patient is RHD. He does admit to some pain over the CMC joint which is mild in MP joint. Plan:Patient is here today for his 2nd left knee Euflexxa injection. Injection was given and patient tolerated well. In addition he does have a trigger thumb of the left that he has been having for about 2 weeks now but previously had an injection [address] Junior that gave him relief for 7-8 months. I talk with patient about doing a repeat injection but patient would like to proceed with surgery. I advised patient that he should stop taking the Meloxicam and aspirin 7 days prior to surgery. Tentative surgery date 10/12/2024 09/20/2024 visit: 1st left knee Euflexxa injection. 08/30/2024 visit:73 year old M new patient with medical history significant for but not limited to chronic diastolic congestive heart failure, smoking greater than 40 pack years, COPD, chronic bronchitis, atherosclerosis of aortic arch, here today for left knee pain. Patient is having left anterior knee pain. The pain in the left knee is a mild pain at this time, it began as very severe. The pain is mainly in the knee cap. does not have any radiation, numbness, or tingling. This has been going on for over a year. Patient states he fell 5 different times. The first fall was at [employer], he missed his step. The other times he fell was he tripped over his rug at home. Patient denies any knee surgeries of the left knee. Walking up hill a little bit makes the pain worse. Patient states that he got a knee injection 7 months ago from [place] sports doctor he points to the medial femoral condyle as to where it was injected. He states that it helped a little bit for about week. Patient stated that he completed physical therapy at [facility] and it did help a lot. Patient denies any diabetes, or blood thinners. Patient denies any drug use. Patient states his balance is fine. He is walking good. He denies any snapping, popping or giving out. He does not take anti- inflammatory medications. He does have a web reaction brace which did help in the begining but it increases the knee pain lately so he hasn't been wearing it often. Plan:Obtained updated left knee x-rays today in the clinic. Reviewed imaging findings as well as MRI that he had in february in detail today with the patient and explained he does have arthritis in the patellofemoral joint, which corresponds to his anterior knee pain. He has not had any further falls or injury since his MRI. His options would be: do nothing, anti-inflammatory medication, application of ice, Glucosamine Chondroitin OTC, steroid injections, viscosupplementation injections, physical therapy to strengthen the musculature around the knee joint. Explained that steroid injections can be given every 3 months and visco injections are a series of 3 injections but they do need to be approved with insurance first and can be given every 6 months. Patient would like to proceed with a steroid injection today in the clinic. he will also try aleve bid for 2 weeks. He should avoid any exercises in deep flexion and should focus on short-arc exercises. He had relief soon after the injection today. Follow up in an as needed basis or sooner if pain, swelling, numbness or associated symptoms, or concerns develop. All questions answered. Patient in agreement of plan. Ortho Exam General General: Yes no acute distress Neurologic: Yes alert and Yes oriented x3 Psychologic: Yes reasonable and appropriate Left Wrist/Hand WRIST: hyperextension of mp mild tenderness at the CMC joint palpable triggering hypertrpohied a1 mk of thumb brisk capillary refill Intact flexor extensor tendons Right Knee Patella Translation: 1 Left Knee Skin/Wound: Yes CDI, No ecchymosis, No erythema and No swelling Knee ROM: Yes ROM-Extension -20 to 0 and No ROM-Flexion 0-140 (120) Examination: No med jt line tenderness, No Lat jt line tenderness, No TTP inf pole patella, No Crepitus, No Pain with flexion, No Jocelyne's Test and No Illiotibial band tenderness Stability: NML: Anterior Drawer, NML: Posterior Drawer, NML: Valgus 0, NML: Valgus 30, NML: Varus 0 and NML: Varus 30 Patella Translation: 1 Constitutional: Well-developed; well-nourished; in no acute distress Eyes: No jaundice ENT: Nares patent; no obvious deformity Cardiovascular: No cyanosis; clubbing; or edema Lymphatic: No adenopathy in area of examination Skin: No rashes or lesions in the area of examination and intact Neurologic: Alert and oriented x 3 Psychiatric: Mood and affect appropriate Office Procedures Euflexxa Procedure Details:: Obtained consent for injection. Under sterile conditions, injected the patients left knee with 20ml Euflexxa injection. The patient tolerated the injection well without any noted complication. Patient should call our office if redness develops, pain worsens or if they have any concerns. Is this Buy & Bill?: Yes Office Meds Euflexxa 10 mg/mL (mw 2.4-3.6 million) intra-articular syringe Performing Provider: Eleazar Mayo DO Performing Location: [facility] Administered by: Eleazar Mayo DO on 10/04/24 08:26 Dose Route Admin Location Dispensed Lot Number Expiration Date NDC [employer] 20 mg intra-articular Left knee 2 mL [id number] 02/13/25 [address]-9 [employer] Supplemental Info 08/30/2024 x-ray left knee: There is degenerative spurring noted of the patellofemoral joint mild narrowing of the lateral patellar facet there is a subtle irregularity of the lateral femoral condyle that is unchanged from the x- ray on 09/29/2023 02/22/2024 MRI left knee: Moderate grade chondromalacia patella with slight lateral patellar subluxation. Tiny joint effusion. No meniscal or ligamentous injury Coding Level of Care Code Off vis,est,level 3 Diagnoses Primary osteoarthritis of left knee M17.12 Osteoarthritis type: primary Assessment and Plan Assessment and Plan (1) Osteoarthritis of left knee: Status: Acute Qualifiers: Osteoarthritis type: primary Qualified Code(s): M17.12 - Unilateral primary osteoarthritis, left knee Orders: Orders Euflexxa Injection Today Plan Third left knee Euflexxa injection given today patient tolerated well follow-up prn . Clinical Quality Measures Falls Risk Screening/Assistive Devices Have you fallen in the past year?: Yes 10/04/24 0923 <Electronically signed by Eleazar Mayo DO> Date Eleazar Mayo DO I have examined the patient and the H&P has been reviewed. There are no clinical changes since date of exam.
--- NOTE | 2024-10-12 08:08 | OP.PCM_ITS ---
Operative Report (Standard) Operative Information Date of Procedure: 10/12/24 Pre-Operative Diagnosis: Left thumb trigger finger Post-Operative Diagnosis: Same Surgery/Procedure Performed: Left thumb A1 mk release tester vibrator equipment: Yes Fountain Clerk: Gordy Flower Tasks completed by therapeutic recreation assistant: Opening & closing Type of Anesthesia: General RN Documented Start/Stop Times: Operation Date: 10/12/24 07:30 Case Time Into Pre-Op 10/12/24 06:01 Out of Pre-Op 10/12/24 07:33 Anesthesia Start 10/12/24 07:35 Into Room 10/12/24 07:35 Procedure Start 10/12/24 07:51 Procedure Start Time: 07:51 Procedure Stop Time: 08:02 Select all DRAINS/GRAFTS/IMPLANTS that apply: None Estimated Blood Loss: 0 Specimen collected: No Description of surgery: preoperative diagnosis; left [thumb] digit trigger finger Postoperative diagnosis; same Procedure: Left first digit A1 mk release Anesthesia: General Tourniquet time; 11 minutes 250 mm Hg Complications: None Indication for procedure; This is a 73-year-old male with symptoms consistent with trigger thumb. Risks benefits and alternatives were reviewed including risks of bleeding infection nerve tendon tissue damage need for further surgery and continued pain and symptoms, hypersensitivity to scar/incision and recurrence. Procedure; The patient was met in the preoperative holding area the operative extremity was identified by both patient and physician and was marked the patient was met by anesthesia and brought back to the operating room and transferred to the operating table in the supine position. Aanesthesia was started. A well-padded tourniquet was placed on the operative upper extremity. The patient was prepped and draped in the usual sterile fashion. A timeout was called to ensure the proper patient procedure and extremity were being contemplated. Esmarch was used tourniquet was inflated. 15 blade scalpel was used to make a horizontal incision directly over the flexion crease distal to A1 mk was carried down through the skin dissection scissors were used to ensure no injury to any crossing branches of the radial digital nerve there was a branch identified and rationale retractors were used to protect the digital nerves and visualize the A1 mk under direct visualization a deep blade scalpel was used to release the A1 mk. The wound was thoroughly irrigated and closed with 4-0 nylon vertical mattress edges. dressing was applied in the form of Xeroform 4 x 4 web roll and an Jorge wrap. Patient tolerated the procedure well was brought back to the PACU in stable condition. Surgical Findings: Hypertrophied thickened A1 mk Complications Complications: No
--- NOTE | 2024-10-12 08:10 | EX.PCM.DISCH ---
Discharge Instructions Diet Discharge Diet: No restrictions Dressing / Incision Call your doctor if you observe: Shortness of breath and Chest pain Additional Dressing/Incision Instructions:: Ice and elevate operative extremity next 72 hours. Keep dressing on clean and dry for 72 hours then may remove and allow warm soapy water to rinse over incision but do not submerge until sutures are out. Then apply bandaid over incision and change daily. encourage finger range of motion. Not lift more than 1/2 pound. Minimize narcotic use only as needed and directed, may use OTC NSAID and Tylenol to supplement/substitute for pain control. Follow Up Care Please Follow Up With: Eleazar Mayo DO When: 2 weeks Test Results: Test results from this visit will be discussed in further detail at your follow-up appointment, if applicable. Discharge Plan Admission Primary Reason for Your Visit: Left thumb A1 mk release Attending Provider: Eleazar Mayo Primary Care Provider: Gil Junior Instructions Print Language: Bulgarian Discharge Orders/Prescriptions Prescriptions: New hydrocodone-acetaminophen 5-325 mg tablet 1 - 2 tab PO Q6H PRN (Reason: pain) 2 Days Qty: 7 0RF No Action losartan 50 mg tablet 50 mg PO BID tadalafil 20 mg tablet 20 mg PO DAILY PRN (Reason: sexual activity) chlorthalidone 25 mg tablet 25 mg PO DAILY Patient Comments: take 1 tablet by mouth once daily rosuvastatin 20 mg tablet 20 mg PO QHS aspirin 81 mg tablet 81 mg PO QDAY tamsulosin 0.4 mg capsule 0.4 mg PO QHS meloxicam 15 mg tablet 15 mg PO QDAY Patient Comments: LAST DOSE WILL BE 10/05 FOR SURGERY ON 10/12/24 (DME) Disability Placard See Rx Instructions .ROUTE .MEDSUPPLY Qty: 1 0RF Rx Instructions: expires 05/06/2028 albuterol sulfate 90 mcg/actuation HFA aerosol inhaler 2 inh inhalation Q6H Qty: 8.5 6RF budesonide-formoterol [Symbicort] 160-4.5 mcg/actuation HFA aerosol inhaler 2 puff inhalation BID Qty: 3 3RF montelukast 10 mg tablet 10 mg PO DAILY Qty: 90 3RF Referrals / Follow Up: Gil Junior MD [Primary Care Provider] - Disposition Disposition (needs filled in before D/C Order can be placed): Home, Self Care
--- NOTE | 2024-10-12 08:16 | PCM.POST.ANE ---
Anesthesia: Postop Eval I Current Vital Signs Temperature: 98.0 F Pulse Rate: 77 Blood Pressure: 151/95 Respiratory Rate: 20 Pulse Ox: 10 Oxygen Delivery Method: Room Air Assessment Airway patent: Yes Spontaneous unlabored respirations: Yes Mental status: Awake and Calm nausea: No Vomiting: No Anesthesia Complication: No Fluid Hydration Crystalloid volume administer (ml): 400 Total IV fluid infused: 400 Progress Note Anesthesia document: Postop Eval 1 completed: Yes
== END 2024-10-12 09:18 | disposition home or self-care (01) ==
LOC: SDC 05:57 → AC 05:58
PROVIDERS: PCP Family Medicine; Referring Provider Family Medicine; Visit Provider Orthopaedic Surgery
PROC: (CPT 26055; principal; 2024-10-12 07:20)
DX: M65.312 Trigger thumb, left thumb (principal); J44.9 Chronic obstructive pulmonary disease, unspecified; I10 Essential (primary) hypertension; E78.00 Pure hypercholesterolemia, unspecified; Z79.51 Long term (current) use of inhaled steroids; Z79.82 Long term (current) use of aspirin; Z79.899 Other long term (current) drug therapy; Z87.891 Personal history of nicotine dependence
CPT/HCPCS: 26055; 01810; J2405